=== PATIENT | female | born 1950 | race Caucasian/White ===

== ENCOUNTER → 2016-09-08 | Outpatient (CLI) | payer MEDICARE, OTHER | END | disposition home or self-care (01) | LOC: CFH 13:18 → MERGE 13:18 | PROVIDERS: ATTEND Obstetrics & Gynecology Gynecology | DX: N63 Unspecified lump in breast (principal); N92.0 Excessive and frequent menstruation with regular cycle | CPT/HCPCS: 76641; G0204 ==

== ENCOUNTER → 2016-09-16 | Outpatient (CLI) | payer OTHER ==
[~2016-09-16] MED LIST: LIDOCAINE 1%-EPI 1:100K, 30ML ONE; SODIUM BICARBONATE 4.2%, 5ML ONE
== END | disposition home or self-care (01) ==
LOC: CFH 10:20 → MERGE 09-17 12:00
PROVIDERS: ATTEND Obstetrics & Gynecology Gynecology
DX: N63 Unspecified lump in breast (principal); Z80.3 Family history of malignant neoplasm of breast
CPT/HCPCS: 19083; 88305; G0206; J3490

== ENCOUNTER → 2016-09-24 | Outpatient (CLI) | payer OTHER ==
[~2016-09-24] MED LIST changes: +GADOBUTROL 10 MMOL/10 ML VIAL ONE; -LIDOCAINE 1%-EPI 1:100K, 30ML ONE; -SODIUM BICARBONATE 4.2%, 5ML ONE
== END | disposition home or self-care (01) ==
LOC: CFH 11:47
PROVIDERS: ATTEND Surgery
DX: D05.01 Lobular carcinoma in situ of right breast (principal); R91.1 Solitary pulmonary nodule
CPT/HCPCS: 82565; A9585; C8908

== ENCOUNTER 2016-10-01 07:21 | Day surgery (SDC) | payer OTHER ==
[2016-09-29 15:13] LABS: ASPARTATE AMINO TRANSFERASE 7 U/L (15-37); BLOOD UREA NITROGEN 6 mg/dL (7-18)
[~2016-10-01] VITALS: Ht 160 cm; Wt 58.0 kg
[~2016-10-01 07:21] MED LIST changes: +BUPIVACAINE/PF-EPI 0.5% 1:200K ONE; -GADOBUTROL 10 MMOL/10 ML VIAL ONE; +GLIM2TAB2 PO; +ISOSULFAN BLUE 10 MG/ML, 5ML IV ONE; +LISI40TA PO; +METF850T2 PO; +SIMV40TA3 PO
[2016-10-01 07:39] VITALS: BP 167/97
[2016-10-01] MEDS ORDERED: LACTATED RINGERS 1,000 ML IV SCH (07:39)
[2016-10-01] MEDS ORDERED: SODIUM BICARBONATE 4.2%, 5ML ONE (08:13)
[2016-10-01] MEDS ORDERED: MIDAZOLAM 1 MG/ML, 2ML ONE (08:13)
[2016-10-01] MEDS ORDERED: FENTANYL PF 250 MCG/5ML ONE (08:13)
[2016-10-01] MEDS ORDERED: LIDOCAINE 1%, 20ML ONE (08:13)
[2016-10-01] MEDS ORDERED: BUPIVACAINE/PF-EPI 0.25% 1:200K ONE (08:40)
[2016-10-01] MEDS ORDERED: SUCCINYLCHOLINE 20 MG/ML, 10ML ONE (09:05)
[2016-10-01] MEDS ORDERED: CEFAZOLIN 1,000 MG ONE (09:05)
[2016-10-01] MEDS ORDERED: DEXAMETHASONE 4 MG/ML, 1ML ONE (09:05)
[2016-10-01] MEDS ORDERED: ROCURONIUM 10 MG/ML ONE (09:05)
[2016-10-01] MEDS ORDERED: ONDANSETRON 2MG/ML, 2ML ONE (09:05)
[2016-10-01] MEDS ORDERED: PROPOFOL 10 MG/ML, 20ML ONE (09:05)
[2016-10-01] MEDS ORDERED: ACETAMINOPHEN 325 MG TABLET PO PRN (10:00)
[2016-10-01] MEDS ORDERED: PROMETHAZINE 25 MG/ML, 1ML IV PRN (10:00)
[2016-10-01] MEDS ORDERED: hydrALAzine 20 MG/ML, 1ML IV PRN (10:00)
[2016-10-01] MEDS ORDERED: HYDROmorphone 1 MG/ML, 1ML IV PRN (10:00)
[2016-10-01] MEDS ORDERED: ONDANSETRON 2MG/ML, 2ML IVPush PRN (10:00)
[2016-10-01] MEDS ORDERED: OXYcodone 5 MG/5 ML ORAL.SOL UDC PO PRN (10:00)
[2016-10-01] MEDS ORDERED: FENTANYL PF 100 MCG/2ML IV PRN (10:00)
[2016-10-01] MEDS ORDERED: MEPERIDINE/PF 25MG/0.5ML IVPush PRN (10:00)
[2016-10-01] MEDS ORDERED: ALBUTEROL/IPRATROPIUM 2.5MG/0.5MG, 3 ML NPPB PRN (10:00)
[2016-10-01] MEDS ORDERED: LABETALOL 5MG/ML, 20ML IV PRN (10:00)
[2016-10-01] MEDS ORDERED: FENTANYL PF 100 MCG/2ML ONE (11:07)
[2016-10-01] MEDS ORDERED: OXYcodone 5 MG/5 ML ORAL.SOL UDC ONE (11:08)
[2016-10-01] MEDS ORDERED: LABETALOL 5MG/ML, 20ML ONE (11:14)
[2016-10-01] MEDS ORDERED: ONDANSETRON ODT 4 MG ONE (13:39)
[2016-10-01] MEDS ORDERED: ONDANSETRON ODT 4 MG PO ONE (14:00)
== END 2016-10-01 13:45 | disposition home or self-care (01) ==
LOC: OUT 07:21
PROVIDERS: ATTEND Surgery
DX: C50.411 Malignant neoplasm of upper-outer quadrant of right female breast (principal); D24.1 Benign neoplasm of right breast; I10 Essential (primary) hypertension; E78.5 Hyperlipidemia, unspecified; E11.9 Type 2 diabetes mellitus without complications; Z90.710 Acquired absence of both cervix and uterus; Z98.890 Other specified postprocedural states; Z83.3 Family history of diabetes mellitus; Z82.3 Family history of stroke; Z80.3 Family history of malignant neoplasm of breast; Z82.49 Family history of ischemic heart disease and other diseases of the circulatory system; F17.210 Nicotine dependence, cigarettes, uncomplicated
CPT/HCPCS: 19303; 36415; 38525; 38792; 80053; 82962; 88307; 88333; 93005; A9541; C1729; J0330; J0690; J1100; J2250; J2405; J2704; J3010; J3490; J7120; Q0162